=== PATIENT | female | born 1930 | race Caucasian/White ===

== ENCOUNTER 2018-07-11 14:26 | Emergency (ER) | payer MEDICARE ==
[~2018-07-11] VITALS: Ht 160 cm; Wt 61.4 kg
[2018-07-11 14:28] VITALS: Ht 160 cm; Wt 61.4 kg
[2018-07-11] MEDS ORDERED: EFFEXOR75 MG PO (14:29)
[2018-07-11] MEDS ORDERED: ATIVAN0.5 MG PO (14:29)
[2018-07-11] MEDS ORDERED: SYNTHROID25 MCG PO (14:30)
[2018-07-11] MEDS ORDERED: DICLOFENAC SODI50 MG PO (14:30)
[2018-07-11] MEDS ORDERED: OXYBUTYNIN CHLOR5 MG PO (14:31)
[2018-07-11 14:57] LABS: APPEARANCE CLEAR (CLEAR); COLOR YELLOW (YELLOW); GLUCOSE NEGATIVE (NEGATIVE); NITRITE NEGATIVE (NEGATIVE); PROTEIN NEGATIVE (NEGATIVE); SPECIFIC GRAVITY 1.005 (1.005-1.020)
[2018-07-11 14:58] LABS: BILIRUBIN NEGATIVE (NEGATIVE); KETONE NEGATIVE (NEGATIVE); UROBILINOGEN NORMAL (NORMAL)
[2018-07-11 15:12] LABS: BASOPHILS 2.4 % (0-2); EOSINOPHILS 0.2 % (0-7); HEMATOCRIT 35.4 % (36.0-48.0); HEMOGLOBIN 11.9 g/dL (12-16); IMMATURE GRANULOCYTES 0.5 % (0-5); LYMPHOCYTES 45.3 % (15-50); MCH 30.1 pg (26.0-34.0); MCHC 33.6 g/dL (31.0-37.0); MCV 89.6 fL (80.0-100.0); MEAN PLATELET VOLUME 9.6 fL (7.4-10.4); MONOCYTES 8.4 % (2-11); NEUTROPHILS 43.2 % (40-80); PLATELET COUNT 198 10x3/uL (130-400); RBC 3.95 10x6/uL (4.00-5.40); RDW 13.3 % (11.5-14.5); WBC 6.3 10x3/uL (4.8-10.8)
[2018-07-11 15:21] LABS: ANION GAP 7.4 mmol/L (8-16); BILIRUBIN - TOTAL 0.4 mg/dL (0.2-1.3); CALCIUM 8.1 mg/dL (8.5-10.1); CARBON DIOXIDE 28.4 mmol/L (21.0-32.0); CREATININE - SERUM 0.9 mg/dL (0.6-1.3); POTASSIUM - SERUM 3.8 mmol/L (3.5-5.1); PROTEIN - SERUM 6.1 g/dL (6.4-8.2)
[2018-07-11 16:21] LABS: CKMB 0.7 U/L (0.0-3.6)
[2018-07-11 16:22] LABS: TROPONIN-I < 0.017 ng/mL (0.000-0.060)
[2018-07-11 20:52] VITALS: BP 187/69
== END 2018-07-11 21:59 | disposition other institution (70) ==
LOC: D.ER 14:26
PROVIDERS: Family Medicine
DX: I63.9 Cerebral infarction, unspecified (principal); R63.0 Anorexia; R42 Dizziness and giddiness

== ENCOUNTER 2020-05-25 17:53 | Inpatient (IN) | payer MEDICARE ==
[~2020-05-25] VITALS: Ht 157.5 cm; Wt 59.1 kg
[~2020-05-25 17:53] MED LIST: ATIVAN0.5 MG PO; DICLOFENAC SODI50 MG PO; EFFEXOR75 MG PO; OXYBUTYNIN CHLOR5 MG PO; SYNTHROID25 MCG PO
--- NOTE | 2020-05-25 18:10 | NUR ---
URINE SENT TO THE LAB.
[2020-05-25 18:13] LABS: BILIRUBIN NEGATIVE (NEGATIVE); GLUCOSE NEGATIVE (NEGATIVE); KETONE NEGATIVE (NEGATIVE); NITRITE NEGATIVE (NEGATIVE); SPECIFIC GRAVITY 1.015 (1.005-1.020); UROBILINOGEN NORMAL (NORMAL)
[2020-05-25 18:15] LABS: WHITE CELLS - URINE NSEEN /hpf (NEGATIVE)
[2020-05-25 18:16] LABS: BACTERIA FEW /hpf (NEGATIVE); EPITHELIAL CELLS NSEEN /hpf (0-5); RED CELLS - URINE 0-5 /hpf (0-5)
[2020-05-25 18:17] LABS: HEMATOCRIT 38.5 % (36.0-48.0); LYMPHOCYTES 10.6 % (15-50); MCH 31.1 pg (26.0-34.0); MCHC 33.8 g/dL (31.0-37.0); MCV 92.1 fL (80.0-100.0); MEAN PLATELET VOLUME 9.1 fL (7.4-10.4); NEUTROPHILS 84.3 % (40-80); RBC 4.18 10x6/uL (4.00-5.40); WBC 9.2 10x3/uL (4.8-10.8)
[2020-05-25 18:22] LABS: PLATELET COUNT 288 10x3/uL (130-400)
[2020-05-25 18:34] LABS: CALCIUM 8.8 mg/dL (8.5-10.1); CARBON DIOXIDE 21.1 mmol/L (21.0-32.0); POTASSIUM - SERUM 4.1 mmol/L (3.5-5.1)
--- NOTE | 2020-05-25 19:05 | NUR ---
REPORT TO MARCELINO LYON
[2020-05-25 21:49] VITALS: BP 170/69
--- NOTE | 2020-05-25 22:23 | NUR ---
PATIENT IS ADMITTED. SHE IS ALERT AND ORIENTATED. SHE IS UP STANDBY ASSISST. SHE HAS IV FLUIDS GOING. SHE IS ON ROOM AIR. WE WILL MONITOR HER URINE OUTPUT.
--- NOTE | 2020-05-26 04:37 | NUR ---
PATIENT IS SLEEPING IN BED. SHE HAS IV FLUIDS GOING. SHE HAS VOIDED TWICE. SHE HAS PUT OUT A GOOD AMOUNT OF URINE. SHE HAS NOT COMPLAINED OF ANY PAIN. WE WILL CONTINUE TO MONITOR HER KIDNEY FUNCTION.
[2020-05-26 05:17] LABS: HEMATOCRIT 34.8 % (36.0-48.0); HEMOGLOBIN 11.8 g/dL (12-16); LYMPHOCYTES 14.9 % (15-50); MCH 31.1 pg (26.0-34.0); MCHC 33.9 g/dL (31.0-37.0); MCV 91.8 fL (80.0-100.0); MEAN PLATELET VOLUME 9.5 fL (7.4-10.4); NEUTROPHILS 79.1 % (40-80); PLATELET COUNT 261 10x3/uL (130-400); RBC 3.79 10x6/uL (4.00-5.40); RDW 12.9 % (11.5-14.5); WBC 7.3 10x3/uL (4.8-10.8)
[2020-05-26 05:18] LABS: ALBUMIN 3.4 g/dL (3.4-5.0); ANION GAP 13.3 mmol/L (8-16); BILIRUBIN - TOTAL 0.44 mg/dL (0.2-1.3); CALCIUM 7.9 mg/dL (8.5-10.1); CARBON DIOXIDE 21.6 mmol/L (21.0-32.0); CREATININE - SERUM 1.6 mg/dL (0.6-1.3); POTASSIUM - SERUM 3.9 mmol/L (3.5-5.1); PROTEIN - SERUM 6.3 g/dL (6.4-8.2)
[2020-05-26 08:00] VITALS: BP 110/75
[2020-05-26 11:09] VITALS: BP 158/71
[2020-05-26 13:54] VITALS: Ht 157.5 cm; Wt 59.1 kg
--- NOTE | 2020-05-26 14:20 | NUR ---
0700 AWAKE ALERT IN ROOM WITH SPOUSE AT BEDSIDE ASSESSMENT COMPLETE
--- NOTE | 2020-05-26 19:02 | NUR ---
1100 PTS DAUGHTER VISITING AT BEDSIDE HAD OPPORTUNTY TO SPEAK WITH DR VAUGHN
--- NOTE | 2020-05-26 19:53 | NUR ---
PATIENT RESTING COMFORTABLY IN BED. SHE IS ALERT AND ORIENTED. RECORDING ENGINEER PUT PATIENT ON FEMALE CATHETER TO SUCTION. SHE IS ON IV FLUIDS. WE WILL CONTINUE TO MONITOR INTAKE AND OUTPUT.
[2020-05-26 20:04] VITALS: BP 161/61
[2020-05-27 02:41] VITALS: BP 167/68
[2020-05-27 05:10] LABS: BASOPHILS 0.6 % (0-2); HEMATOCRIT 35.8 % (36.0-48.0); HEMOGLOBIN 11.7 g/dL (12-16); IMMATURE GRANULOCYTES 0.3 % (0-5); MCH 30.6 pg (26.0-34.0); MCHC 32.7 g/dL (31.0-37.0); MCV 93.7 fL (80.0-100.0); MEAN PLATELET VOLUME 9.5 fL (7.4-10.4); MONOCYTES 8.3 % (2-11); NEUTROPHILS 68.8 % (40-80); PLATELET COUNT 251 10x3/uL (130-400); RBC 3.82 10x6/uL (4.00-5.40); WBC 6.4 10x3/uL (4.8-10.8)
--- NOTE | 2020-05-27 05:10 | NUR ---
PATIENT IS SLEEPING COMFORTABLY IN BED. SHE HAS PUREWICK CATHETER IN AND IS PUTTING OUT A LOT OF URINE. HER PHOSPHORUS WAS LOW THIS MORNING AND SHE WILL BE GETTING IV REPLACEMENT.
[2020-05-27 05:57] VITALS: BP 168/61
[2020-05-27 06:15] LABS: ALBUMIN 3.2 g/dL (3.4-5.0); ALKALINE PHOSPHATASE 72 U/L (30-120); ALT (SGPT) 18 U/L (10-68); BILIRUBIN - TOTAL 0.29 mg/dL (0.2-1.3); CALCIUM 7.8 mg/dL (8.5-10.1); CHLORIDE - SERUM 104 mmol/L (98-107); CREATINE KINASE 254 UL (21-215); CREATININE - SERUM 1.3 mg/dL (0.6-1.3); LDH 255 U/L (81-234); MAGNESIUM - SERUM 1.9 mg/dL (1.8-2.4); PHOSPHOROUS 1.6 mg/dL (2.5-4.9); POTASSIUM - SERUM 3.6 mmol/L (3.5-5.1); PRO BNP 817 pg/mL (0-450); SODIUM 136 mmol/L (136-145); THYROID STIMULATING HORMONE 2.62 uIU/mL (0.36-3.74); UREA NITROGEN 18 mg/dL (7-18); eGFR NON AFRICAN AMERICAN 41 mL/min (90-120)
[2020-05-27 06:17] LABS: CALC OSMOLALITY 272 mosm/kg (275-300); GLUCOSE 89 mg/dL (74-106)
[2020-05-27 06:18] LABS: CKMB 1.2 U/L (0.0-3.6)
[2020-05-27 08:00] VITALS: BP 139/65
--- NOTE | 2020-05-27 12:16 | NUR ---
RESTING IN BED, NO DISTRESS NOTED, IV TO LAC, PHOS LOW, REPLACING PER IV, CONT TO MONITOR PUREWICK, OUTPUT GOOD
[2020-05-27 15:00] VITALS: BP 171/71
[2020-05-27 20:00] VITALS: BP 198/71
--- NOTE | 2020-05-27 21:46 | NUR ---
INITIAL ROUNDS COMPLETED AT 0 HRS. PT DENIED ANY DISCOMFORT. ASSESSMENT COMPLETED AT 2024 HRS. SR PER [id number]. ALERT AND ORIENTED TO PERSON, PLACE AND TIME. HA. LUNGS ESSENTIALLY CTA. HEART TONES S1 S2. ABD SOFT WITH ACTIVE BS NOTED. IV TO LAC WITHNS AT 50CC/HR. IV PATENT. PUREWICK IN USE DRAINING YELLOW URINE. PUREWICK CHANGED OUT AT THAT TIME. PM MEDS GIVEN. PT CURRENTLY WATCHING TV. SR UP X2,CALL LIGHT WITHIN REACH.
--- NOTE | 2020-05-27 23:43 | NUR ---
BP 189/79. APRESOLINE 10MG VERY SIVP GIVEN AT 2312 HRS. WILL CONTINUE TO MONITOR.
[2020-05-28] VITALS: BP 189/79
[2020-05-28 00:55] VITALS: BP 174/73
--- NOTE | 2020-05-28 01:38 | NUR ---
PT RESTING WITH EYES CLOSED. RESP EVEN AND REGULAR. SR UP X2, CALL LIGHT WITHIN REACH.
[2020-05-28 04:00] VITALS: BP 173/71
--- NOTE | 2020-05-28 04:21 | NUR ---
PT RESTING WITH EYES CLOSED. RESP EVEN AND REGULAR. SR UP X2, CALL LIGHT WITHIN REACH.
[2020-05-28 05:23] LABS: BASOPHILS 0.6 % (0-2); EOSINOPHILS 2.9 % (0-7); HEMATOCRIT 35.8 % (36.0-48.0); HEMOGLOBIN 11.6 g/dL (12-16); IMMATURE GRANULOCYTES 0.1 % (0-5); LYMPHOCYTES 22.1 % (15-50); MCH 30.5 pg (26.0-34.0); MCHC 32.4 g/dL (31.0-37.0); MCV 94.2 fL (80.0-100.0); MEAN PLATELET VOLUME 9.7 fL (7.4-10.4); MONOCYTES 10.4 % (2-11); NEUTROPHILS 63.9 % (40-80); PLATELET COUNT 261 10x3/uL (130-400); RDW 13.3 % (11.5-14.5); WBC 6.8 10x3/uL (4.8-10.8)
[2020-05-28 05:47] LABS: ANION GAP 12.5 mmol/L (8-16); CALCIUM 8.4 mg/dL (8.5-10.1); CREATININE - SERUM 1.1 mg/dL (0.6-1.3); POTASSIUM - SERUM 3.4 mmol/L (3.5-5.1)
[2020-05-28 05:49] LABS: CARBON DIOXIDE 21.9 mmol/L (21.0-32.0); PHOSPHOROUS 2.2 mg/dL (2.5-4.9)
--- NOTE | 2020-05-28 06:17 | NUR ---
SR PER CM DURING SHIFT. PT STATED SHE RESTED WELL. PHOS AND K+ LOW THIS AM. TREATED PER ELECTROLYTE PROTOCOL. NEEDS MET; WILL CONTINUE TO MONITOR.
--- NOTE | 2020-05-28 07:20 | NUR ---
RECIEVE REPORT. RESTING IN BED WITH EYES CLOSED. NO SIGNS OF DISTRESS. CONTINUE PLAN OF CARE AND SAFETY PRECAUTIONS.
[2020-05-28 08:00] VITALS: BP 165/74
[2020-05-28 11:00] VITALS: BP 173/63
--- NOTE | 2020-05-28 13:39 | NUR ---
ALERT AND ORIENTED X4. SITTING UP IN BED. DAUGHTER AT BEDSIDE. PULLED LT AC IV TIP INTACT BY SELF. DISCHARGE INSTRUCTIONS GIVEN VERBALLY AND WRITTEN. DISCHARGE PAPERS SIGNED ON CHART. ESCORT TO RIDE VIA WHEELCHAIR. REMAINS FREE FROM INJURY.
--- NOTE | 2020-05-28 20:17 | MORECARE ---
CASE MANAGEMENT DISCHARGE SUMMARY PATIENT: GLORIA SCHUSTER UNIT: [id number] ADM DATE: 05/25/20 AGE: 89 : 34 SEX: F ROOM/BED: D.1725 AUTHOR: BRENNAN REYNOSO PHYSICIAN: REFERRING PHYSICIAN: PEDRO VAUGHN DO DATE OF SERVICE: 05/28/20 Discharge Plan Patient Name: GLORIA SCHUSTER Facility: [facility]:[place] : 1930 Planned Disposition: Home Anticipated Discharge Date: Discharge Date: 05/28/2020 Expected LOS: Initial Reviewer: [email or web address] Initial Review Date: 05/25/2020 Generated: 05/28/20 9:16 pm Comments DCP- Discharge Planning Updated by [email or web address]: Harriet Mullen on 05/28/20 7:[address] Patient Name: GLORIA SCHUSTER Admission Status: ER Accout number: [id number] Admission Date: 05-25-2020 : 1930 Admission Diagnosis: Attending: PEDRO VAUGHN Current LOS: 3 Anticipated DC Date: Planned Disposition: Home Primary Insurance: [employer] PPO M[employer] Discharge Planning Comments:CM met with patient to complete initial dc planning assessment. CM educated patient on the CM role and verbal consent given by patient to complete assessment. Patient lives at home with family. Patient is independent. At discharge patient plans to return home and feels this is a safe discharge. CM discussed availability of home health, rehab services, and medical equipment. Patient will have family to transport home. Patient denied known discharge needs at this time. CM will continue to follow and will assist as needed with dc plans/needs. [employer]: Harriet Mullen DCPIA - Discharge Planning Initial Assessment Updated by [email or web address]: Harriet Mullen on 05/28/20 8:16 pm * Is the patient Alert and Oriented? Yes * How many steps to enter\exit or inside your home? * PCP [facility] * [facility] * Preadmission Environment Home Alone * ADLs Independent * Equipment Walker * List name and contact numbers for known caregivers / representatives who currently or will assist patient after discharge: RODRIGO MELTON - [facility] - [phone] * Verbal permission to speak to the caregivers and representatives has been obtained from the patient. Yes * Community resources currently utilized None * Additional services required to return to the preadmission environment? No * Can the patient safely return to the preadmission environment? Yes * Has this patient been hospitalized within the prior 30 days at any hospital? No Coverage Notice Reviewer: [id number] Gabino Mullen Notice Issued Date-Time: 05/28/2020 12:55 Notice Type: IM Discharge Notice Notice Delivered To: Patient Relationship to Patient: Self Software Developer Mid Level Name: Delivery Method: HAND - Hand Delivered Jillian Days: Prior Verbal Notification: Recipient Understood Notice: Yes Recipient Signature: Yes Med Rec Note Co-signed by Attending: Coverage Notice Comment: Patient Name: GLORIA SCHUSTER Page [id number] at 2017 All edits/amendments must be made on the electronic document DICTATION DATE: 05/28/202015 RAZOR GRINDER: ARYA 05/28/20 2016 RPT#: [id number] DC DATE:05/28/20 STATUS: DIS [id number] [place] [address] END OF REPORT
== END 2020-05-28 13:44 | disposition home or self-care (01) | DRG 683 ==
LOC: D.ER 17:53 → D.M2 20:16
PROVIDERS: Emergency Medicine; Internal Medicine Nephrology; ADMIT Family Medicine; ATTEND Family Medicine
DX: N17.9 Acute kidney failure, unspecified (principal); N39.0 Urinary tract infection, site not specified; M48.54XA Collapsed vertebra, not elsewhere classified, thoracic region, initial encounter for fracture; E87.1 Hypo-osmolality and hyponatremia; I12.9 Hypertensive chronic kidney disease with stage 1 through stage 4 chronic kidney disease, or unspecified chronic kidney disease; N18.3 Chronic kidney disease, stage 3 (moderate); D63.1 Anemia in chronic kidney disease; E03.9 Hypothyroidism, unspecified; F41.8 Other specified anxiety disorders; W19.XXXA Unspecified fall, initial encounter; R73.9 Hyperglycemia, unspecified; E86.9 Volume depletion, unspecified; K59.00 Constipation, unspecified; N13.30 Unspecified hydronephrosis